=== PATIENT | female | born 1990 | race Caucasian/White ===

== ENCOUNTER 2016-11-16 18:33 | Emergency (ER) | payer MEDICAID ==
[2016-11-16 18:45] VITALS: BP 112/77
[2016-11-16 19:07] LABS: Basophils % (Auto) 0.4 % (0.0-1.8); Eosinophils % (Auto) 2.6 % (0.0-4.3); Hematocrit 37.4 % (30.3-42.9); Hemoglobin 12.4 gm/dl (10.1-14.3); Mean Corpuscular HGB Conc 33 % (30-34); Mean Corpuscular Hemoglobin 27 pg (28-32); Mean Corpuscular Volume 81 fl (79-97); Platelet Count 248 K/mm3 (140-440); Red Blood Count 4.65 M/mm3 (3.65-5.03); Red Cell Distribution Width 14.2 % (13.2-15.2)
--- NOTE | 2016-11-16 20:46 | Ultrasound Report ---
FINAL REPORT EXAM: US OB \T\lt; = 14 WEEKS FETUS HISTORY: Vaginal bleeding during TECHNIQUE: Ultrasound obstetrical transabdominal PRIORS: None. FINDINGS: Single live intrauterine gestation is present Piru-rump length is 4.56 centimeters corresponding to estimated gestational age of 11 weeks 3 days with estimated date of delivery June 04, 2017 cardiac activity is present with heart rate of 164 beats per minute Right ovary is 2.0 x 1.6 x 2.0 centimeters. Left ovary is 3.7 x 2.5 x 2.7 centimeters No free fluid identified in the cul-de-sac No abnormal adnexal mass identified. IMPRESSION: Single live intrauterine gestation estimated at 11 weeks 3 days
[2016-11-16 21:33] LABS: Bilirubin,Urine NEG (Negative); Blood,Urine NEG (Negative); Ketones,Urine TR mg/dL (Negative); Leukocyte Esterase,Urine NEG (Negative); Mucus,Urine FEW /HPF; Nitrite,Urine NEG (Negative); Protein,Urine <15 mg/dL mg/dL (Negative); Urobilinogen,Urine < 2.0 mg/dL (<2.0)
--- NOTE | 2016-11-17 00:43 | Emergency Department Report ---
HPI - General Chief Complaint: Vaginal Bleeding Time Seen by Provider: 11/17/16 00:35 - HPI HPI: 76-year-old female brought to ED with vaginal bleeding 1 today that has since stopped. Patient had tests at home but unsure how far along she is because her cycles are usually irregular. Patient is accompanied by boyfriend who provides the history because the patient does not speak [place]. Patient denied any pain, vaginal discharge, dysuria, nausea, vomiting , diarrhea. ED Past Medical Hx - Past Medical History Previous Medical History?: No - Surgical History Past Surgical History?: No - Family History Family history: hypertension - Social History Smoking Status: Never Smoker Substance Use Type: None ED Review of Systems ROS: Stated complaint: VAGINAL BLEEDING POSS PREG Other details as noted in HPI Comment: All other systems reviewed and negative Cardiovascular: denies: chest pain, palpitations Endocrine: no symptoms reported Gastrointestinal: as per HPI Genitourinary: as per HPI Physical Exam - Physical Exam Vital Signs: Vital Signs 11/16/16 18:38 Temperature 98.0 F Pulse Rate 97 H Respiratory 18 Rate Blood Pressure 112/77 O2 Sat by Pulse 100 Oximetry Physical Exam: Physical Exam: - General Limitations: No Limitations General appearance: alert, in no apparent distress - Head Head exam: Present: atraumatic, normocephalic - Eye Eye exam: Present: normal appearance - ENT ENT exam: Present: mucous membranes moist - Neck Neck exam: Present: normal inspection - Respiratory Respiratory exam: Present: normal lung sounds bilaterally. Absent: respiratory distress - Cardiovascular Cardiovascular Exam: Present: normal rhythm. Absent: systolic murmur, diastolic murmur, rubs, gallop - GI/Abdominal GI/Abdominal exam: Present: soft, normal bowel sounds -: Patient refused - Extremities Exam Extremities exam: Present: normal inspection - Back Exam Back exam: Present: normal inspection - Neurological Exam Neurological exam: Present: alert, oriented X3 - Psychiatric Psychiatric exam: normal affect and mood - Skin Skin exam: Present: warm, dry, intact, normal color. Absent: rash ED Course Vital Signs 11/16/16 18:38 Temperature 98.0 F Pulse Rate 97 H Respiratory 18 Rate Blood Pressure 112/77 O2 Sat by Pulse 100 Oximetry ED Medical Decision Making - Lab Data Result diagrams: 11/16/16 18:58 Critical care attestation.: If time is entered above; I have spent that time in minutes in the direct care of this critically ill patient, excluding procedure time. ED Disposition Clinical Impression: Vaginal bleeding in Disposition: DC-01 TO HOME OR SELFCARE Is pt being admited?: No Does the pt Need Aspirin: No Condition: Stable Instructions: (ED), Morning Sickness (ED) Referrals: PRIMARY CARE, [Primary Care Provider] - 3-5 Days
== END 2016-11-17 00:50 | disposition home or self-care (01) ==
LOC: ED 18:33
DX: O46.91 Antepartum hemorrhage, unspecified, first trimester (principal); Z3A.01 Less than 8 weeks gestation of pregnancy
CPT/HCPCS: 36415; 76801; 81001; 84702; 84703; 85025; 86850; 86900; 86901

== ENCOUNTER 2017-04-06 21:26 | Outpatient (CLI) | payer MEDICAID ==
[2017-04-06] MEDS ORDERED: LACTATED RINGERS 1,000 ML ONE (22:21)
[2017-04-06] MEDS ORDERED: LACTATED RINGERS 500 ML IV ONE (22:30)
[2017-04-06 23:03] VITALS: BP 110/75
--- NOTE | 2017-04-06 23:54 | Ultrasound Report ---
FINAL REPORT PROCEDURE: US OB LIMITED TECHNIQUE: Real-time limited sonographic examination was performed for evaluation of single living for each fetus with image documentation (1 or more fetuses). CPT 00453 HISTORY: fall COMPARISON: No prior studies are available for comparison. FINDINGS: This is a very limited exam. There is an image showing a single living intrauterine gestation in the vertex presentation. heart rate of 143 beats per minute is detected. The placenta is located fundal and is grade 0. No abruption visualized on the portions displayed. Amount of amniotic fluid appears normal. Amniotic fluid index was not calculated. Detailed exam of the fetus was not performed today. measurements were not obtained. IMPRESSION: There is a single living intrauterine gestation currently in the vertex presentation with a heart rate of 143 beats per minute. Subjectively the amount of amniotic fluid appears normal. No evidence of placenta abruption. Grade 0 placenta located fundal. Internal cervical os was not demonstrated. Detailed exam of the anatomy was not performed.
[2017-04-07 01:17] LABS: Hematocrit 36.1 % (30.3-42.9); Hemoglobin 11.8 gm/dl (10.1-14.3); Mean Corpuscular HGB Conc 33 % (30-34); Mean Corpuscular Volume 79 fl (79-97); Platelet Count 234 K/mm3 (140-440); Red Blood Count 4.56 M/mm3 (3.65-5.03)
[2017-04-07 01:20] LABS: Mean Corpuscular Hemoglobin 26 pg (28-32)
[2017-04-07] MEDS ORDERED: LACTATED RINGERS 1,000 ML ONE (01:37)
[2017-04-07] MEDS ORDERED: LACTATED RINGERS 1,000 ML IV ONE (06:48)
== END 2017-04-07 03:02 | disposition home or self-care (01) ==
LOC: TRG 21:26
PROVIDERS: ATTEND Obstetrics & Gynecology
DX: O26.893 Other specified pregnancy related conditions, third trimester (principal); W19.XXXA Unspecified fall, initial encounter; Z3A.31 31 weeks gestation of pregnancy; Y93.89 Activity, other specified; Y92.89 Other specified places as the place of occurrence of the external cause; Y99.8 Other external cause status
CPT/HCPCS: 36415; 59025; 76815; 85027; 86850; 86900; 86901; 96360; 96361; J7120